=== PATIENT | male | born 1970 | race Caucasian/White ===

== ENCOUNTER 2017-05-31 08:58 | Emergency (ER) | payer MEDICAID, OTHER ==
[~2017-05-31] VITALS: Ht 185.4 cm; Wt 117.9 kg
[2017-05-31] MEDS ORDERED: GABAPENTIN (09:14)
[2017-05-31] MEDS ORDERED: FLEXERIL (09:15)
[2017-05-31] MEDS ORDERED: WATER PILL (09:15)
[2017-05-31] MEDS ORDERED: TRAM50TA2 PO (09:59)
[2017-05-31] MEDS ORDERED: GABA-488 PO (09:59)
--- NOTE | 2017-05-31 10:00 | ED Lower Extremity ---
General Chief Complaint: Lower Extremity Stated Complaint: FEET PAIN Nursing Triage Note: ARRIVED VIA AMB TO ROOM 08. COMPLAINS OF BILAT FOOT PAIN DUE TO NEUROPATHY. STATES HIS GABAPENTIN IS NOT HELPING. Nursing Sepsis Screen: No Definite Risk Source: patient Exam Limitations: no limitations History of Present Illness Time seen by provider: 09:40 Initial Comments Here with complaint of neuropathic foot pain bilateral thigh has worsened over the past several days. He is here working with the [employer] and he is originally from [place], [place]. Also has fungal infection to both feet that is currently not treated. Denies other concerns. Onset: last week Severity: moderate Method of Injury: unknown Modifying Factors: Improves With Immobilization, Worse With Movement Allergies and Home Medications Allergies Coded Allergies: No Known Drug Allergies (Unverified , 05/31/17) Home Medications Gabapentin 300 Mg Capsule, 300 MG PO TID, #90 Prescribed by: MADELYN REYES on 05/31/17 0959 Tramadol HCl 50 Mg Tablet, 50 MG PO Q6H PRN for PAIN, #20 Ref 0 Prescribed by: MADELYN REYES on 05/31/17 0959 [Flexeril] , (Reported) [Gabapentin] , (Reported) [Water Pill] , (Reported) Constitutional: see HPI, No chills, No fever Respiratory: no symptoms reported Cardiovascular: no symptoms reported Musculoskeletal: see HPI, muscle pain, muscle stiffness Skin: see HPI, change in color, No rash Psychiatric/Neurological: See HPI, Pre-Existing Deficit Past Eyxnugm-[id number]-Dtraxw Hx Patient Social History Alcohol Use: Denies Use Recreational Drug Use: No Smoking Status: Current Everyday Smoker Recent Foreign Travel: No Contact w/Someone Who Travel: No Recent Infectious Disease Expo: No Recent Hopitalizations: No Surgeries HX Surgeries: Yes Surgeries: Orthopedic Neurological Hx Neurological Disorders: Yes Neurological Disorders: Neuropathy Musculoskeletal Musculoskeletal Disorders: Arthritis Reviewed Nursing Assessment Reviewed/Agree w Nursing PMH: Yes Family Medical History Significant Family History: No Pertinent Family Hx Physical Exam Vital Signs Vital Sign - Last 12Hours 05/31/17 09:00 Temp 98.0 Pulse 74 Resp 16 B/P (MAP) 139/94 Pulse Ox 98 Capillary Refill : Less Than 3 Seconds General Appearance: WD/WN, no apparent distress Cardiovascular: regular rate, rhythm, no murmur Respiratory: lungs clear, normal breath sounds Feet: bilateral foot other (bilateral feet with erythema throughout the entire sole of the foot. Cap refill less than 3 seconds all toes. Has obvious fungal infection of the great toes bilaterally and tinea pedis over both feet. Retains range of motion but tender to touch bilaterally. Distal pulses dorsalis pedis and posterior tibia intact bilaterally.) Neurologic/Psychiatric: alert, oriented x 3 Skin: warm/dry, rash (feet as described above) Progress/Results/Core Measures Results/Orders My Orders Orders - MADELYN REYES MD Tramadol Tablet (Ultram Tablet) (05/31/17 09:48) Vital Signs/I&O Vital Sign - Last 12Hours 05/31/17 05/31/17 09:00 10:18 Temp 98.0 Pulse 74 81 Resp 16 16 B/P (MAP) 139/94 Pulse Ox 98 98 Blood Pressure Mean: 109 Progress Note : Progress Note Seen and evaluated. Tramadol 50 mg by mouth. Discussed therapy with the patient. He is returning to his home town in 2-3 weeks. We will increase his gabapentin until then. Discharged home with return precautions. Patient verbalize understanding instructions and agreement with plan. Departure Impression Impression: Primary Impression: Neuropathic pain of both feet Additional Impression: Athletes foot Qualified Codes: B35.3 - Tinea pedis Disposition: 01 HOME, SELF-CARE Condition: Stable Departure-Patient Inst. Decision time for Depature: 09:56 Referrals: NO,LOCAL PHYSICIAN (PCP/Family) Primary Care Physician Patient Instructions: Athlete's Foot (DC), Peripheral Neuropathy (DC) Add. Discharge Instructions: All discharge instructions reviewed with patient and/or family. Voiced understanding. Use topical antifungal cream to feet per package directions. He may take Tylenol 1000 mg every 8 hours as needed for pain. He may take ibuprofen 800 mg every 8 hours as needed for pain. Take other medications as prescribed. Follow -up with your DrLexi in a few days for recheck. Return for worse pain, fever, vomiting, weakness, breathing problems or other concerns as needed. You will increase your gabapentin to 900 mg every 8 hours. I will prescribe additional dosing of 300 mg gabapentin that you can add with your gabapentin to complete full dosing. Scripts Gabapentin (Gabapentin) 300 Mg Capsule 300 MG PO TID, #90 CAP Prov: MADELYN REYES MD 05/31/17 Tramadol HCl (Tramadol HCl) 50 Mg Tablet 50 MG PO Q6H Y for PAIN, #20 TAB 0 Refills Prov: MADELYN REYES MD 05/31/17 MADELYN REYES MD May 31, 2017 10:00
[2017-05-31 10:18] VITALS: BP 144/96
== END 2017-05-31 10:18 | disposition home or self-care (01) ==
LOC: ER 09:01
DX: M79.2 Neuralgia and neuritis, unspecified (principal); M79.671 Pain in right foot; M79.672 Pain in left foot; B35.3 Tinea pedis; M19.90 Unspecified osteoarthritis, unspecified site; F17.200 Nicotine dependence, unspecified, uncomplicated
CPT/HCPCS: 99283